=== PATIENT | female | born 1995 ===

== ENCOUNTER 2017-10-18 22:46 | Emergency (ER) | payer OTHER ==
[~2017-10-18] VITALS: Ht 162.6 cm; Wt 59.7 kg
[2017-10-18 22:52] VITALS: TEMP 36.6; Ht 162.6 cm; Wt 59.7 kg
[2017-10-18] MEDS ORDERED: DEXAMETHASONE SOD INJ 4 MG/ML VIAL IV STA (23:01)
[2017-10-18] MEDS ORDERED: DiphenhydrAMINE HCL 50 MG/ML VIAL IV STA (23:01)
[2017-10-18] MEDS ORDERED: FAMOTIDINE 20MG/5ML IV PUSH IV STA (23:01)
[2017-10-18] MEDS ORDERED: HYDR-3126 PO (23:08)
[2017-10-18] MEDS ORDERED: ESTROGEN PEG (23:13)
[2017-10-18] MEDS ORDERED: LEVO1CAP6 PO (23:13)
[2017-10-18] MEDS ORDERED: MULT-506 PO (23:13)
--- NOTE | 2017-10-18 23:37 | EMERGENCY ROOM VISIT NOTE ---
History First contact with patient: 22:55 Chief Complaint: ALLERGIC REACTION Stated Complaint: RASH, HOT, RED, POSSIBLE ALLERGIC REACTION Nursing Triage Summary: PAtient reports she thinks she is having alergic reaction to something she ate. Patient reports redness, itchiness all over body. History of Present Illness The patient is a 22 year old female who presents to the Emergency Room with complaints of possible allergic reaction. The patient states that she ate [place] food this evening, and approximately 30 minutes ago she began to have itching and burning all over her body. She states she has noticed some redness to the skin. She has previously had allergic reactions to sesame but is unsure if her food tonight contained any of this. She took 25 mg of hydroxyzine and states that this improved the redness and itching on her face slightly. She denies difficulty swallowing/breathing, nausea/vomiting, or facial swelling. Review of Systems A complete 10 point review of systems was reviewed with the patient with pertinent positives and negatives as per history of present illness. All else were negative. Past Medical/Surgical History Medical Problems: (1) No significant active problems Social History Smoking Status: Never Smoker Occupation Status: [employer] student Current/Historical Medications Scheduled Levocarnitine L-Tartrate (L-Carnitine), 1 CAP PO DAILY Multivitamin (Multivitamin), 1 TAB PO DAILY Prednisone (Prednisone Tab), 2 TAB PO DAILY [Estrogen Tablet], 1 TAB PEG DAILY Scheduled PRN Hydroxyzine Hcl (Atarax), 1 TAB PO UD PRN for Itching Physical Exam Vital Signs Date Time Temp Pulse Resp B/P (MAP) Pulse Ox O2 Delivery O2 Flow Rate FiO2 10/19/17 00:11 78 16 122/65 98 10/18/17 22:52 36.6 80 18 99/55 96 Room Air Physical Exam VITALS: Vitals are noted on the nurse's note and reviewed by myself. Vital signs stable. GENERAL: This is a 22-year-old female, in no acute distress, nondiaphoretic, well-developed well-nourished. SKIN: There is a diffuse erythematous rash with scattered raised areas over bilateral upper legs, abdomen, upper chest, upper legs, and back. The rash is easily blanchable. EARS: External auditory canals clear, tympanic membranes pearly gardner without erythema or effusion bilaterally. EYES: Pupils equal round and reactive to light and accommodation. MOUTH: Mucous membranes moist. Tonsils are not enlarged. Pharynx without erythema or exudate. NECK: Supple without nuchal rigidity. No lymphadenopathy. HEART: Regular rate and rhythm without murmurs gallops or rubs. LUNGS: Clear to auscultation bilaterally without wheezes, rales or rhonchi. No retractions or accessory muscle use. ABDOMEN: Soft, nontender to palpation. NEURO: Patient was alert and oriented to person place and time. Medical Decision & Procedures Medications Administered Medications (Trade) Dose Ordered Sig/Tunde Route Start Time Stop Time Status Last Admin Dose Admin Dexamethasone Sodium Phosphate (Decadron Inj) 10 mg NOW STAT IV 10/18/17 23:01 10/18/17 23:04 DC 10/18/17 23:13 10 MG Diphenhydramine HCl (Benadryl Inj) 25 mg NOW STAT IV 10/18/17 23:01 10/18/17 23:04 DC 10/18/17 23:13 25 MG Famotidine (Pepcid 20mg Iv Push) 20 mg ONE STAT IV 10/18/17 23:01 10/18/17 23:04 DC 10/18/17 23:13 20 MG ED Course The patient was evaluated as above. IV access was obtained. Patient was medicated with IV Decadron, Benadryl and Pepcid as above. Patient was reevaluated and stated she was feeling slightly better. Discharge instructions were reviewed with the patient. The patient verbalized understanding of my assessment and treatment plan and was discharged home in good condition. Medical Decision Differential diagnosis includes allergic reaction, contact dermatitis, anaphylaxis, among others. The patient is a 22-year-old female who presents today complaining of generalized itching and rash. Exam consistent with urticaria. Likely an allergic reaction to something the patient ate this evening. Patient was treated with IV Decadron, Benadryl and Pepcid with improvement of symptoms. She will be discharged home on a short course of prednisone. She was advised to follow-up with S for further evaluation. Based on the patient's presentation and work up, I feel the patient is stable for outpatient treatment. The patient was educated to return to the emergency department for any worsening of their current condition or new/concerning symptoms. She will follow up with S. Medication Reconcilliation Current Medication List: was personally reviewed by me Blood Pressure Screening Patient's blood pressure: Normal blood pressure Impression Primary Impression: Allergic reaction Departure Information Dispostion Home / Self-Care Condition GOOD Prescriptions Prednisone (Prednisone Tab) 20 Mg Tab 2 TAB PO DAILY for 4 Days, #8 TAB Prov: Mitzi Flowers .VÍCTOR 10/19/17 Referrals [facility] (PCP) Patient Instructions My [facility] Additional Instructions You have been treated in the Emergency Department for an Allergic Reaction. You have been treated and monitored in the Emergency Department appropriately. You should take Benadryl (diphenhydramine) 25 mg orally every 6 hours for the next 5-7 days. This medication is [id number] and you will NOT need a prescription to purchase this at your local pharmacy. You should continue taking the Benadryl for the COMPLETION of the 5-7 days. This is to prevent a rebound allergic reaction in the event that allergens are still present in your system. You have been prescribed Prednisone 40 mg to be taken orally once a day for the next 4 days. This is an anti-inflammatory medicine to be used to help minimize your symptoms. You should take the COMPLETE course of the medication. As with every Emergency Department visit, you should follow-up with your primary care provider in 2-3 days for reevaluation. Return to the Emergency Department if your current symptoms worsen despite treatment course outlined above, or if you develop any of the following symptoms : wheezing, tongue or face swelling, tightness in your throat, shortness of breath, or fainting. Problem Qualifiers Primary Impression: Allergic reaction Encounter type: initial encounter Qualified Codes: T78.40XA - Allergy, unspecified, initial encounter
[2017-10-19] MEDS ORDERED: PRED20TA2 PO (00:05)
[2017-10-19 00:11] VITALS: BP 122/65; PULSE 78; O2SAT 98
== END 2017-10-19 00:11 | disposition home or self-care (01) ==
LOC: C.EDB 22:48 → C.EDA 10-19 00:11
DX: T78.40XA Allergy, unspecified, initial encounter (principal); X58.XXXA Exposure to other specified factors, initial encounter